=== PATIENT | male | born 1940 | race Hispanic/Latino ===

== ENCOUNTER → 2021-12-09 | Outpatient (CLI) | payer MEDICARE ==
[~2021-12-09] MED LIST: GADOTERATE MEGLUMINE 10 MMOL/20 ML VIAL IV ONE
== END | disposition home or self-care (01) ==
LOC: RAH 09:04
PROVIDERS: ATTEND Surgery Surgical Oncology
DX: K86.89 Other specified diseases of pancreas (principal); R18.8 Other ascites
CPT/HCPCS: 74183; A9575